=== PATIENT | male | born 1970 | race Caucasian/White ===

== ENCOUNTER 2019-01-24 18:25 | Emergency (ER) | payer OTHER ==
[~2019-01-24] VITALS: Ht 167.6 cm; Wt 84.5 kg
[~2019-01-24 18:25] MED LIST: AUG875 PO; BACTDS PO; TYLENOL
[2019-01-24 18:27] VITALS: Ht 167.6 cm; Wt 84.5 kg
[2019-01-24] MEDS ORDERED: HYDROCODONE/APAP (5/325) TAB PO ONE (19:00)
[2019-01-24] MEDS ORDERED: BACL10TA PO (21:12)
[2019-01-24] MEDS ORDERED: IBUP-1542 PO (21:12)
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
[2019-01-24 21:24] VITALS: BP 136/87; PULSE 67; RESP 18
== END 2019-01-24 21:25 | disposition home or self-care (01) ==
LOC: FTE 18:25
DX: S80.11XA Contusion of right lower leg, initial encounter (principal); M25.561 Pain in right knee; S09.90XA Unspecified injury of head, initial encounter; S19.9XXA Unspecified injury of neck, initial encounter; Y04.2XXA Assault by strike against or bumped into by another person, initial encounter; Z87.891 Personal history of nicotine dependence
CPT/HCPCS: 70450; 72125; 73550; 73562; Z7502; Z7610